=== PATIENT | male | born 1930 | race Caucasian/White ===

== ENCOUNTER 2016-10-10 09:56 | Inpatient (IN) | payer MEDICARE ==
[~2016-10-10] VITALS: Ht 180.3 cm; Wt 111.7 kg
[2016-10-10] VITALS (7 sets, daily range): BP systolic 95–130; BP diastolic 52–71; Ht 180.3 cm; Wt 111.7 kg
[~2016-10-10 09:56] MED LIST: ASPIRIN325 MG PO; AUGMENTIN 500-11 TA1 PO; BACTRIM 400-801 TAB PO; BENZONATATE200 MG PO; DEPAKOTE ER500 MG PO; FANAPT8 MG PO; IPRAT-ALBUT 0.5-3 ML INH; K-TAB10 MEQ PO; LASIX20 MG PO; LEVAQUIN500 MG PO; MOBIC7.5 MG PO; MUCINEX DM ER1 EAC1 PO; NEURONTIN 300300 MG; NEURONTIN 300300 MG PO; NEURONTIN600 MG PO; PROZAC20 MG PO; PULMICORT0.5 MG/21 UPD; SINGULAIR10 MG PO; SYNTHROID50 MCG PO; VITAMIN D31000 UNI2 PO; ZOCOR20 MG PO
[2016-10-10 11:11] LABS: BASOPHILS 0.3 % (0.0-2.0); EOSINOPHILS 4.3 % (0-7); HEMATOCRIT 35.4 % (42.0-54.0); HEMOGLOBIN 11.6 g/dL (13.5-17.5); IMMATURE GRANULOCYTES 0.3 % (0-5); LYMPHOCYTES 28.9 % (15-50); MCHC 32.8 g/dL (31.0-37.0); MCV 97.8 fL (80.0-100.0); MEAN PLATELET VOLUME 9.8 fL (7.4-10.4); MONOCYTES 13.5 % (2-11); NEUTROPHILS 52.7 % (40-80); RBC 3.62 10x6/uL (4.20-6.10); RDW 13.3 % (11.5-14.5); WBC 7.5 10x3/uL (4.8-10.8)
[2016-10-10 11:26] LABS: ALBUMIN 3.1 g/dL (3.4-5.0); ALKALINE PHOSPHATASE 47 U/L (46-116); ALT (SGPT) 23 U/L (10-68); BILIRUBIN - TOTAL 0.29 mg/dL (0.2-1.3); CALC OSMOLALITY 283 mosm/kg (275-300); CALCIUM 9.6 mg/dL (8.5-10.1); CARBON DIOXIDE 32.2 mmol/L (21.0-32.0); CHLORIDE - SERUM 102 mmol/L (98-107); CREATININE - SERUM 1.4 mg/dL (0.6-1.3); PLATELET COUNT 181 10x3/uL (130-400); PROTEIN - SERUM 7.6 g/dL (6.4-8.2); SODIUM 141 mmol/L (136-145); UREA NITROGEN 25 mg/dL (7-18); eGFR NON AFRICAN AMERICAN 51 mL/min (90-120)
[2016-10-10 11:27] LABS: GLUCOSE 89 mg/dL (74-106)
[2016-10-10 11:34] LABS: PRO BNP 134 pg/mL (0-450)
[2016-10-10 11:37] LABS: PHENYTOIN (DILANTIN) < 0.5 ug/mL (10.0-20.0)
--- NOTE | 2016-10-10 14:50 | NUR ---
PATIENT RECEIVED TO FLOOR FROM ER VIA STRETCHER. AMBULATED TO BED ASSIST X2. GAIT UNSTEADY. NO SIGNS OF DISTRESS NOTED. ORIENTED TO ROOM. BED IN LOW POSITION. CALL LIGHT IN REACH. DAUGHTER AT BEDSIDE.
[2016-10-10] MEDS ORDERED: FUROSEMIDE20 MG PO (14:52)
[2016-10-10] MEDS ORDERED: VITAMIN D31000 UNIT PO (14:54)
[2016-10-10] MEDS ORDERED: OS-CAL 500+D TA1 TAB PO (14:54)
[2016-10-10] MEDS ORDERED: IPRAT-ALBUT 0.5-3 ML UPD (14:55)
--- NOTE | 2016-10-10 16:00 | NUR ---
BED ALARM ON. SCDS ON BILATERALLY. USE EXPLAINED. STATES UNDERSTANDING. BED IN LOW POSITION. CALL LIGHT IN REACH.
--- NOTE | 2016-10-10 16:55 | NUR ---
RADIOISOTOPE TECHNICIAN REPORTS 75 CONTROL AFIB. REPORTED TO PHYSICIAN
[2016-10-10 17:26] LABS: CKMB 1.6 U/L (0.0-3.6); CREATINE KINASE 62 UL (21-232)
[2016-10-10 17:35] LABS: TROPONIN-I < 0.017 ng/mL (0.000-0.060)
--- NOTE | 2016-10-10 17:48 | NUR ---
IVF AND IV ABX INITIATED PER ORDER. IV TO RIGHT FOREARM PATENT. NO REDNESS OR INFLAMMATION NOTED TO SITE. WILL CONTINUE TO MONITOR.
--- NOTE | 2016-10-10 18:10 | NUR ---
ALERT IN BED WITH DAUGHTER PRESENT. NO SIGNS OF DISTRESS NOTED. SCDS ON BILATERALLY. SIDE RAILS UP X2. BED IN LOW POSITION. CALL LIGHT IN REACH.
--- NOTE | 2016-10-10 20:30 | NUR ---
ASSESSMENT COMPLETED, NO ACUTE DISTRESS NOTED, DTR AT BEDSIDE, FALL PRECAUTIONS IN PLACE, CL IN REACH, WILL MONITOR
[2016-10-10 21:42] LABS: CKMB 1.9 U/L (0.0-3.6); CREATINE KINASE 61 UL (21-232)
[2016-10-10 21:48] LABS: TROPONIN-I < 0.017 ng/mL (0.000-0.060)
--- NOTE | 2016-10-10 22:23 | NUR ---
MEDS GIVEN PER MAR, PARAM WELL, PT PULLED IV OUT, CATH INTACT, RESPIRATORY IN ROOM PERFORMING EKG, IV RESITED R WRIST WITH 20G X 1 ATTEMPT, FAMILY AT BEDSIDE, CL IN REACH
[2016-10-11] VITALS (8 sets, daily range): BP systolic 84–172; BP diastolic 45–72
[2016-10-11 05:30] LABS: BASOPHILS 0.1 % (0.0-2.0); EOSINOPHILS 4.5 % (0-7); HEMATOCRIT 32.4 % (42.0-54.0); HEMOGLOBIN 10.4 g/dL (13.5-17.5); IMMATURE GRANULOCYTES 0.3 % (0-5); LYMPHOCYTES 42.1 % (15-50); MCH 31.9 pg (26.0-34.0); MCHC 32.1 g/dL (31.0-37.0); MCV 99.4 fL (80.0-100.0); MEAN PLATELET VOLUME 9.7 fL (7.4-10.4); MONOCYTES 12.9 % (2-11); NEUTROPHILS 40.1 % (40-80); PLATELET COUNT 185 10x3/uL (130-400); RBC 3.26 10x6/uL (4.20-6.10); RDW 13.5 % (11.5-14.5); WBC 7.7 10x3/uL (4.8-10.8)
[2016-10-11 06:08] LABS: ALBUMIN 2.6 g/dL (3.4-5.0); ALKALINE PHOSPHATASE 49 U/L (46-116); ALT (SGPT) 22 U/L (10-68); CALC OSMOLALITY 286 mosm/kg (275-300); CALCIUM 8.2 mg/dL (8.5-10.1); CARBON DIOXIDE 31.2 mmol/L (21.0-32.0); CHLORIDE - SERUM 106 mmol/L (98-107); CHOL - HDL RATIO 3.9 ratio (2.3-4.9); CHOLESTEROL, TOTAL 177 mg/dL (0-200); CKMB 1.8 U/L (0.0-3.6); CREATINE KINASE 45 UL (21-232); CREATININE - SERUM 1.2 mg/dL (0.6-1.3); GLUCOSE 95 mg/dL (74-106); HDL CHOLESTEROL 45 mg/dL (32-96); LDL CHOLESTEROL 115 mg/dL (0-100); LDL-HDL RATIO 2.6 ratio (1.5-3.5); POTASSIUM - SERUM 3.8 mmol/L (3.5-5.1); PROTEIN - SERUM 6.8 g/dL (6.4-8.2); SODIUM 143 mmol/L (136-145); THYROID STIMULATING HORMONE 2.83 uIU/mL (0.36-3.74); TRIGLYCERIDE 85 mg/dL (30-200); TROPONIN-I < 0.017 ng/mL (0.000-0.060); UREA NITROGEN 19 mg/dL (7-18); eGFR NON AFRICAN AMERICAN 61 mL/min (90-120)
--- NOTE | 2016-10-11 07:55 | NUR ---
DAILY WEIGHT OBTAINED AT THIS TIME. ALERT AND ORIENTED. DAUGHTER AT BEDSIDE. ASSESSMENT PERFORMED PER FLOWSHEET. CARROLL MAT ALARM IN USE FOR FALL PRECAUTIONS. SCD'S REMOVED AND SKIN ASSESSMENT PERFORMED. SKIN TO BLE WNL. OXYGEN ON 2L VIA NC WITH RESPIRATIONS EVEN AND NON LABORED. PT AMBULATES WITH ASSIST AND SELF POSTITIONS IN BED WITH COMFORT. CALL LIGHT IN REACH. SRX2 WITH BED IN LOWEST POSITION AND WHEELS LOCKED. WILL CONTINUE WITH PLAN OF CARE.
--- NOTE | 2016-10-11 09:16 | NUR ---
Patient Name: JOSUE GUZMAN Admission Status: ER Accout number: [id number] Admission Date: 10-10-2016 : 1932 Admission Diagnosis: Attending: JAZMYN Current LOS: 1 Anticipated DC Date: 10-15-2016 Planned Disposition: Home with Home Health Primary Insurance: MEDICARE A & B Discharge Planning Comments: CM MET WITH PATIENT AND DAUGHTER REGARDING D/C NEEDS AND PLANS. PATIENT STATED HE HAS 10 STEPS W/RAILS TO ENTER HIS HOME AND NO STAIRS INSIDE. PATIENT LIVES ALONE BUT FAMILY IS THERE DAILY. PATIENT STATED HE IS INDEPENDENT OF HIS CARE AND HAS A WALKER, CANE, SHOWER CHAIR, HOSPITAL BED, OXYGEN 2L 24/7, PORTABLE O2, AND NEBULIZER AT HOME. PATIENTS DAUGHTER (ANDRES) HELPS WITH HIS MEDICATION MANAGEMENT. PATIENTS PCP IS DR. PONCE IN [facility] AND USES [facility]. PATIENTS DAUGHTER SIGNED THE [facility] FORM FOR [facility] IN [place] AT DISCHARGE. CM WILL CONTINUE TO FOLLOW PATIENT WITH D/C NEEDS AND PLANS. PCP DR. PONCE ([facility]) [facility] [phone] ANDRES MCKEON (DAUGHTER) [phone] [facility] ([place]) [phone] Loaf Counter: Astrid Mota Is the patient Alert and Oriented? Yes 0 * How many steps to enter\exit or inside your home? 10 /RAILS 0 * PCP DR. PONCE IN [place] 0 * Pharmacy [facility] 0 * Preadmission Environment Home with Family 0 * ADLs Independent 0 * Equipment [facility] Bed Nebulizer Oxygen Shower Chair Walker 0 * Other Equipment PORTABLE O2 SUPPLIED BY HEALTH[facility] 0 * List name and contact numbers for known caregivers / representatives who currently or will assist patient after discharge: ANDRES MCKEON (DAUGHTER) [phone] 0 * Community resources currently utilized None 0 * Additional services required to return to the preadmission environment? Yes 0 * Can the patient safely return to the preadmission environment? Yes 0 * Has this patient been hospitalized within the prior 30 days at any hospital? No 0 Grand Total: 0
--- NOTE | 2016-10-11 09:45 | NUR ---
SITTING AT SIDE OF BED AT THIS TIME. DAUGHTER AT BEDSIDE. MEDICATIONS TAKEN WITHOUT DIFFICULTY. PT MADE NPO FOR CTA. DENIES PAIN. CALL LIGHT IN REACH. CARROLL MAT ALARM ON AND IN USE. WILL CONTINUE WITH PLAN OF CARE.
--- NOTE | 2016-10-11 11:00 | NUR ---
PT NPO FOR CTA OF THE CAROTIDS PER IMAGING DEPARTMENT. DAUGHTER REMAINS AT BEDSIDE. NO FURTHER NEEDS ASSESSED. WILL CONTINUE WITH PLAN OF CARE.
--- NOTE | 2016-10-11 12:47 | NUR ---
MEDICATION ADMINISTERED WITH SMALL SIP OF WATER ORDERED. REMAINS NPO OTHERWISE. DAUGHTER REMAINS AT BEDSIDE. WILL CONTINUE WITH PLAN OF CARE.
--- NOTE | 2016-10-11 13:58 | NUR ---
BEING TAKEN FOR CT SCAN AT THIS TIME. WILL MONITOR PT WHEN HE RETURNS TO HIS ROOM.
--- NOTE | 2016-10-11 15:15 | NUR ---
IV SALINE LOCKED AND WRAPPED FOR PROTECTION SO THAT DAUGHTER MAY HELP PATIENT WITH A SHOWER. LINENS CHANGED.
--- NOTE | 2016-10-11 19:00 | NUR ---
PATIENT SUPINE IN BED WATCHING TV. HOB 20 DEGREES. AAOX4. RR EVEN AND UNLABORED. O2 @ 2L VIA NC. 0 S/S OF DISTRESS. DENIES PAIN AT THIS TIME. IV TO RIGHT WRIST PATENT WITH NO REDNESS OR SWELLING. SCD'S ON. TELEMETRY ON. CARROLL MAT ON. DAUGHTER AT BEDSIDE. SRX2. BED LOW. CALL LIGHT WITHIN REACH.
[2016-10-12] VITALS: BP 110/51; BP 123/71; BP 130/76
[2016-10-12 04:00] VITALS: BP 111/52; BP 114/69; BP 138/66
[2016-10-12 05:13] LABS: BASOPHILS 0 % (0.0-2.0); EOSINOPHILS 0.1 % (0-7); HEMATOCRIT 33.5 % (42.0-54.0); IMMATURE GRANULOCYTES 0.6 % (0-5); LYMPHOCYTES 21.3 % (15-50); MCH 32.2 pg (26.0-34.0); MCHC 32.8 g/dL (31.0-37.0); MEAN PLATELET VOLUME 9.8 fL (7.4-10.4); MONOCYTES 1.9 % (2-11); NEUTROPHILS 76.1 % (40-80); PLATELET COUNT 192 10x3/uL (130-400); RBC 3.42 10x6/uL (4.20-6.10); RDW 13.2 % (11.5-14.5)
[2016-10-12 05:34] LABS: ALBUMIN 2.7 g/dL (3.4-5.0); ANION GAP 11.1 mmol/L (8-16); BILIRUBIN - TOTAL 0.19 mg/dL (0.2-1.3); CARBON DIOXIDE 28.2 mmol/L (21.0-32.0); CREATININE - SERUM 1.1 mg/dL (0.6-1.3); POTASSIUM - SERUM 4.3 mmol/L (3.5-5.1); PROTEIN - SERUM 7.1 g/dL (6.4-8.2)
--- NOTE | 2016-10-12 07:40 | NUR ---
LYING SUPINE WITH HOB AT 20 DEGREES. AWAKE AND ALERT. RESPIRATIONS EVEN AND NON LABORED. OXYGEN ON 2L VIA NC. ASSESSMENT PERFORMED PER FLOWSHEET. PT DENIES PAIN. SCD'S ON AND IN WORKING ORDER. CARROLL MAT ALARM IN USE FOR FALL PRECAUTIONS. BED IN LOWEST POSITION WITH SRX2 AND WHEELS LOCKED. CALL LIGHT IN REACH, PT DENIES NEEDS AT THIS TIME. WILL CONTINUE WITH PLAN OF CARE, DOOR REMAINS OPEN.
[2016-10-12 08:00] VITALS: BP 103/52; BP 130/71
[2016-10-12 08:03] VITALS: BP 123/62
[2016-10-12 11:00] VITALS: BP 140/65; BP 144/69
[2016-10-12] MEDS ORDERED: ZPAK PO (11:06)
[2016-10-12] MEDS ORDERED: TESSALON PERLE100 MG PO (11:06)
[2016-10-12] MEDS ORDERED: BETAPACE 80 MG80 MG PO (11:06)
[2016-10-12] MEDS ORDERED: MUCINEX DM ER1 EAC1 PO (11:06)
[2016-10-12] MEDS ORDERED: PREDNISONE10 MG PO (11:07)
[2016-10-12] MEDS ORDERED: OMNICEF300 MG PO (11:08)
[2016-10-12 11:11] VITALS: BP 131/67
--- NOTE | 2016-10-12 12:23 | NUR ---
CM REASSESSMENT NOTE: PATIENT IS DISCHARGING HOME TODAY WITH [facility] OUT OF [facility] FORM WAS SIGNED. PATIENTS DAUGHTER (JOSIE) IS DRIVING HIM HOME. PATIENT REFUSED IP REHAB-FAMILY AWARE.
--- NOTE | 2016-10-12 12:30 | NUR ---
CM REASSESSMENT NOTE: PATIENT IS DISCHARGING HOME TODAY WITH [facility] OUT OF [facility] FORM WAS SIGNED. PATIENTS DAUGHTER (JOSIE) IS DRIVING HIM HOME. PATIENT REFUSED IP REHAB-FAMILY AWARE.
--- NOTE | 2016-10-12 12:40 | CN ---
PATIENT NAME:JOSUE SWEENEY MEDICAL RECORD: [id number] : 32 LOCATION:[facility] [address] ADMIT DATE: 10/10/16 ACCOUNT: [id number] CONSULTING PHYSICIAN: LUDMILA CHEEK MD REFERRING PHYSICIAN: AMINA DIXON MD DATE OF CONSULTATION: 10/11/2016 CONSULT REQUESTING PHYSICIAN: Amina Dixon MD. REASON FOR CONSULTATION: Pneumonia, frequent falls. HISTORY OF PRESENT ILLNESS: Mr. Sweeney is an 86-year-old gentleman, very well known to me. The patient has a history of pulmonary fibrosis and COPD and chronic hypoxic respiratory failure. This fibrosis is stable. According to the patient's daughter, he has a fall a few days ago, but then he has 2 falls in row. According to the patient, he has a brief loss of consciousness, but do not remember the event. At one time, he fell down and hit his head on something. He denies any fever and chill. There are no night sweats. There is no significant sputum production. There was no recent upper respiratory tract infection. REVIEW OF SYSTEMS: Mainly in the history of present illness. PAST MEDICAL HISTORY: 1. COPD, home oxygen dependent. 2. Congestive heart failure. 3. Coronary artery disease. 4. Chronic hypoxic respiratory failure. 5. Chronic kidney disease. 6. Manic depressive disorder. PAST SURGICAL HISTORY: He had an ear surgery. ALLERGIES: ALLERGIC TO BEE VENOM. PRESENT MEDICATIONS: On PlaceVine, is reviewed. PERSONAL AND SOCIAL HISTORY: The patient lives alone. He is an ex-smoker. He is a nondrinker. FAMILY HISTORY: Noncontributory. PHYSICAL EXAMINATION: GENERAL: Now, the patient is lying comfortably in bed. He is not in acute distress. VITAL SIGNS: The blood pressure is 196 to 119/59, pulse is 71, respirations 20, temperature is 98.8, SpO2 is 96% on 2 liter nasal cannula. HEENT: Conjunctivae pink, sclerae nonicteric. NECK: Supple, no JVD. CHEST: The chest excursion is minimal on both sides, bilateral crackles. No wheezing. HEART: Rhythm regular, normal sound, no murmur. ABDOMEN: Soft. Bowel sounds present. No hepatosplenomegaly. RECTAL: Deferred. EXTREMITIES: No cyanosis. No clubbing. There is 1+ pedal edema. CONSULT REPORT [id number] JOSUE SWEENEY SKIN: Warm, normal turgor. CENTRAL NERVOUS SYSTEM: The patient is awake and alert. There is no obvious cranial nerve abnormality. The gait was not tested. IMAGING: Chest radiograph, there are increased interstitial markings. There is infiltrate in the left lower lobe on today's chest x-ray that has been improved. CT scan of the head did not show any acute ischemic process. OTHER LABORATORY DATA: CBC: WBC is 7.7, hemoglobin 11.6, hematocrit 35.4, the platelet count is 181. Chemistry: Sodium 143, potassium 3.8, BUN is 19, creatinine 1.2. IMPRESSION: 1. Ptyzu-jo-cfcfiwm hypoxic respiratory failure. 2. Pneumonia, left lower lobe, most likely community-acquired pneumonia, possibly aspiration at the time of syncopal episode. 3. Pulmonary fibrosis that has been stable. 4. Chronic obstructive pulmonary disease. 5. Syncope, rule out pulmonary hypertension, rule out cardiac causes, rule out neurological causes. Possible orthostatic hypotension. 6. Frequent falls. RECOMMENDATION: 1. The patient already seen by Dr. Herrmann. 2. Check the cardiac echo. We will continue Zithromax and Rocephin. Start methylprednisolone IV, Brovana and budesonide nebulizer. Continue with Singulair [address] Dixon, once again thanks for allowing me in the care of Mrs. Sweeney. TRANSINT:[id number] Voice Confirmation ID: [id number] DOCUMENT ID: [id number] LUDMILA CHEEK MD at 1240 CC: AMINA DIXON MD [id number] DICTATION DATE: 10/11/16 1309 FERMENTING CELLARS RECEIVER: 10/11/16 1453 ADM IN [facility] [address] [place] [address]
--- NOTE | 2016-10-12 14:25 | NUR ---
DISCHARGED HOME WITH DAUGHTER AT THIS TIME. IV TO RIGHT WRIST D/C WITH CATH TIP INTACT.
--- NOTE | 2016-10-26 08:46 | EC ---
PATIENT:JOSUE GUZMAN DATE OF SERVICE: 10/10/16 SEX: M MEDICAL RECORD: [id number] DATE OF : 32 LOCATION:D.[facility] AGE OF PATIENT: 86 ADMISSION DATE: 10/10/16 REFERRING PHYSICIAN: INTERPRETING PHYSICIAN: HARPREET NAGY MD ECHOCARDIOGRAM REPORT ECHO CHARGES 4 ECHO COMPLETE CLINICAL DIAGNOSIS: FALLS/PNEUMONIA HX OF CHF/DYSPNEA/TIA ECHOCARDIOGRAPHIC MEASUREMENTS (adult normal given) AC root (d.<3.7cm) 3.7 LV Septum d (<1.2 cm> 1.3 Valve Excursion 2.2 LV Septum (systole) 1.5 Left Atria (s.<4.0cm> 3.0 LVPW d(<1.2cm) 1.5 RV (d.<2.3cm) 4.7 LVPW (sytole) 1.7 LV diastole(<5.6CM) 5.2 MV E-F(>70mm/sec) LV systole 3.8 LVOT Diameter 1.9 MV exc.(>10mm) 1.3 Est.ejection fraction (50-75%) Pericardial Effusion N DOPPLER: LVIT A 67.0 E 52.0 LA RVSP 30 LVOT 104 AOP1/2T Asc. Ao 149 RVOT 90 RA PA 128 AV Gradient Peak 8.89 AV Mean 3.90 AV Area 2.3 MV Gradient Peak 2.11 MV Mean 1.01 MV Area COMMENTS: Spirits Model: Angelique ALFORD Store Clerk Cashier:Marisela Herrmann TAPE# PACS DATE OF SERVICE: 10/11/2016 Echocardiogram FINDINGS: 1. Left ventricular chamber size is within normal limits. Left ventricular systolic function is normal. Overall ejection fraction estimated at 55%. 2. Left atrium is within normal limits at 3.0 cm. Right atrium and right ventricular chamber sizes are mildly dilated. 3. Valvular structures have normal structure and motion. ECHOCARDIOGRAM REPORT [id number] JOSUE GUZMAN 4. Doppler interrogation reveals trace mitral regurgitation, trace to mild tricuspid regurgitation. No other valvular insufficiency or stenosis. Pulmonary systolic pressure is normal, estimated 30 mmHg. 5. No evidence of pericardial effusion or left ventricular thrombus. TRANSINT:[id number] Voice Confirmation ID: [id number] DOCUMENT ID: [id number] 10/15/2016 Edited to correct date of service, dmm. HARPREET NAGY MD at 0846 CC: [id number] DICTATION DATE: 10/12/16 1043 RAPID TRANSIT OPERATOR: 10/12/16 1137 DIS IN 10/12/16 [id number] [place] [address]
== END 2016-10-12 14:25 | disposition home health service (06) | DRG 189 ==
LOC: D.ER 09:56 → D.MS 13:43
PROVIDERS: Physician Assistant; ADMIT Emergency Medicine
DX: J96.21 Acute and chronic respiratory failure with hypoxia (principal); J18.9 Pneumonia, unspecified organism; J44.0 Chronic obstructive pulmonary disease with (acute) lower respiratory infection; I13.0 Hypertensive heart and chronic kidney disease with heart failure and stage 1 through stage 4 chronic kidney disease, or unspecified chronic kidney disease; N17.9 Acute kidney failure, unspecified; J84.10 Pulmonary fibrosis, unspecified; I95.1 Orthostatic hypotension; N18.3 Chronic kidney disease, stage 3 (moderate); I48.0 Paroxysmal atrial fibrillation; I50.9 Heart failure, unspecified; R29.6 Repeated falls; R53.1 Weakness; Z99.81 Dependence on supplemental oxygen; Z87.891 Personal history of nicotine dependence

== ENCOUNTER 2016-10-12 20:38 | Emergency (ER) | payer MEDICARE ==
[2016-10-10 15:03] VITALS: BMI 33.5
[~2016-10-12 20:38] MED LIST changes: +BETAPACE 80 MG80 MG PO; +FUROSEMIDE20 MG PO; +IPRAT-ALBUT 0.5-3 ML UPD; +OMNICEF300 MG PO; +OS-CAL 500+D TA1 TAB PO; +PREDNISONE10 MG PO; +TESSALON PERLE100 MG PO; +VITAMIN D31000 UNIT PO; +ZPAK PO
== END 2016-10-12 22:43 | disposition home or self-care (01) ==
LOC: D.ER 20:38
DX: S82.62XA Displaced fracture of lateral malleolus of left fibula, initial encounter for closed fracture (principal); W01.0XXA Fall on same level from slipping, tripping and stumbling without subsequent striking against object, initial encounter; Y93.89 Activity, other specified; Y92.019 Unspecified place in single-family (private) house as the place of occurrence of the external cause; F31.9 Bipolar disorder, unspecified; I50.9 Heart failure, unspecified; J44.9 Chronic obstructive pulmonary disease, unspecified; Z86.73 Personal history of transient ischemic attack (TIA), and cerebral infarction without residual deficits

== ENCOUNTER 2016-10-15 14:49 | Inpatient (IN) | payer MEDICARE ==
[~2016-10-15] VITALS: Ht 180.3 cm; Wt 112.0 kg
--- NOTE | 2016-10-15 15:00 | NUR ---
PT ARRIVED TO REHAB WITH FAMILY PT ORIENTED TO ROOM CALL LIGHT IN REACH VITALS STABLE WILL MONITER
[2016-10-15 15:39] VITALS: BP 149/85; BMI 34.5
--- NOTE | 2016-10-15 17:00 | NUR ---
PT RESTING IN BED WITH EYES OPEN CALL LIGHT IN REACH NO PROBLEMS WILL MONITER
--- NOTE | 2016-10-15 19:25 | NUR ---
PT. IN BED WITH HOB UP FOR COMFORT WITH EYES CLOSED AND RESP. EVEN. PT. AWAKENS EASILY WHEN CALLING OUT HIS NAME. PT. DENIES ANY NEEDS AT THIS TIME. ASSESSMENT COMPLETED. CALL LIGHT WITHIN REACH. PT. WEARING HIS 3D WALKING BOOT TO HIS LLE AT ALL TIME. CIRCULATION TO TOES GOOD. 02 @ 2L/MIN VIA N/C NO REPORTED PROBLEMS.
--- NOTE | 2016-10-15 21:20 | NUR ---
PT. IN BED WITH HOB UP FOR COMFORT WITH EYES CLOSED AND RESP. EVEN. CALL LIGHT WITHIN REACH.
[2016-10-15 22:47] VITALS: BP 148/83
--- NOTE | 2016-10-15 23:18 | NUR ---
PT. IN BED READING HIS DEVOTIONS/BIBLE. PT. HAS NO NEEDS AT THIS TIME. CALL LIGHT WITHIN REACH.
--- NOTE | 2016-10-16 01:02 | NUR ---
PT. IN BED WITH HOB UP FOR COMFORT WITH EYES CLOSED AND RESP EVEN. CALL LIGHT WITHIN REACH.
--- NOTE | 2016-10-16 02:45 | NUR ---
PT. UP WITH ASSISTANCE TO BR FOR BM AND TO URINATE. PT. ASSISTED BACK TO BED WITHOUT ANY PROBLEMS, POSITIONED TO COMFORT AND CALL LIGHT WITHIN REACH.
--- NOTE | 2016-10-16 02:45 | NUR ---
PT BANQUET ATTENDANT LIGHT, PT UP TO BR WITH ASSISTANCE VIA WC, PT TO COMMODED, PT VOIDED AND HAD BM BY SELF WITH NO DIFFICULTY, PT BACK TO WC, WASH CLOTH PROVIDED FOR HANDS, PT BACK TO BED, O2 PLACED BACK ON, BED IN LOW POSITION, SIDE RAILS X 2, CALL LIGHT IN REACH
--- NOTE | 2016-10-16 05:59 | NUR ---
PT KICK BOXER LIGHT, PT UP IN BR AT THIS TIME, PT OFF COMMODED TO WC, BACK TO BED, O2 PLACED BACK ON, PT PLACES GLASSES ON, HOB UP TO 45 DEGREES, PT GETTING READY TO READ HIS BIBLE, PT DENIES FURTHER NEEDS OR PAIN AT THIS TIME
[2016-10-16 06:31] LABS: BASOPHILS 0.1 % (0.0-2.0); EOSINOPHILS 0.3 % (0-7); HEMATOCRIT 34.2 % (42.0-54.0); HEMOGLOBIN 11.1 g/dL (13.5-17.5); IMMATURE GRANULOCYTES 0.8 % (0-5); MCH 31.6 pg (26.0-34.0); MCHC 32.5 g/dL (31.0-37.0); MCV 97.4 fL (80.0-100.0); MEAN PLATELET VOLUME 9.5 fL (7.4-10.4); MONOCYTES 9.3 % (2-11); NEUTROPHILS 56.5 % (40-80); PLATELET COUNT 200 10x3/uL (130-400); RBC 3.51 10x6/uL (4.20-6.10); RDW 13.6 % (11.5-14.5); WBC 9.3 10x3/uL (4.8-10.8)
[2016-10-16 06:39] LABS: ANION GAP 7.6 mmol/L (8-16); CARBON DIOXIDE 34.8 mmol/L (21.0-32.0); CREATININE - SERUM 1.1 mg/dL (0.6-1.3); POTASSIUM - SERUM 3.4 mmol/L (3.5-5.1)
--- NOTE | 2016-10-16 07:00 | NUR ---
Pt. was received in bed at the beginning of this shift. Awake and asking for assist to the bathroom. Pt. had had an incontinent episode with urine and his pajamas were saturated in urine. Pt. was helped to the bathroom and his adult brief and pants were changed out. Pt. stayed up in wheelchair and began his breakfast when it arrived. Vital signs: Temp. 97.6, pulse 73, resp. 14, b/p 101/53, 02Sat. 97%. 02 per nc going at 2L/min. Stable condition observed. Call light is in reach.
[2016-10-16 09:37] VITALS: Ht 180.3 cm; Wt 112.0 kg
--- NOTE | 2016-10-16 12:00 | NUR ---
Pt. is having an uneventful day. He is assisted to and from the bathroom with each episode. No signs of any discomfort or distress. Call light in reach. Will continue to observe.
[2016-10-16 18:21] VITALS: BP 101/53
[2016-10-16 19:05] VITALS: BP 98/61
--- NOTE | 2016-10-16 19:35 | NUR ---
PT. IN BED WITH HOB UP FOR COMFORT AND WEARING HIS 3D WALKING BOOT IN BED. PT. STATES HE WEARS IT ALL THE TIME. ASSESSMENT COMPLETED. PT. DENIES ANY NEEDS AT THIS TIME AND HIS CALL LIGHT IS WITHIN REACH.
--- NOTE | 2016-10-16 22:10 | NUR ---
FOUND PT. UP IN HIS W/C GOING TO THE BR WITHOUT ANY ASSISTANCE. INSTRUCTED PT. TO ALWAYS CALL FOR ASSISTANCE WE DON'E WANT HIM TO FALL. PT. RELATED HE HAD A BAD EXPERIENCE ON DAY SHIFT TODAY WHEN HE NEEDED TO URINATE AND NO ONE WOULD ANSWER HIS CALL LIGHT SO HE GOT UP IN HIS W/C BY HIMSELF. INSTRUCTED PT. TO CALL FOR ASSISTANCE AND WE WILL ANSWER THE CALL LIGHT. INFORMED PT. I WOULD REPORT THIS INCIDENT TO WALDO WINTERS, AWAKE OVERNIGHT COUNSELOR. PT. INSTRUCTED TO USE PULL CORD IN BATHROOM WHEN HE IS FINISHED. PT. STATED HE WOULD.
--- NOTE | 2016-10-16 23:46 | NUR ---
PT. IN BED WITH HOB UP FOR COMFORT WITH EYES CLOSED AND RESP. EVEN. O2 ON AT 2L/MIN, 3D WALKING BOOT REMAINS ON AT ALL TIMES AND CALL LIGHT IS WITHIN REACH.
--- NOTE | 2016-10-17 00:02 | NUR ---
PT. IN BED WITH HOB UP FOR COMFORT WITH EYES CLOSED AND RESP. EVEN. 3D BOOT CONTINUES TO BE ON LLE AND O2 ON AT 2L/MIN WITHOUT ANY PROBLEMS. CALL LIGHT WITHIN REACH.
--- NOTE | 2016-10-17 03:06 | NUR ---
PT. IN BED WITH HOB UP FOR COMFORT WITH EYES CLOSED AND RESP. EVEN. CALL LIGHT WITHIN REACH. 3C BOOT ON LLE AT ALL TIMES AND PT. HAS HIS O2 ON VIA N/C AT 2L/MIN.
--- NOTE | 2016-10-17 05:36 | NUR ---
PT. IN BED WATCHING TV. NO VOICED NEEDS BUT ASKED PT. IF HE NEEDED TO USE THE BATHROOM AND HE SAID YES. PT. URINATED AND HAD A B.M. ASSISTED BACK TO BED AND POSITIONED TO COMFORT. LLE WITH 3D WALKING BOOT STILL ON AND HIS O2 ON AT 2L/MIN VIA N/C WITHOUT ANY PROBLEMS. CALL LIGHT REMAINS WITHIN REACH.
[2016-10-17 08:19] VITALS: BP 100/59
--- NOTE | 2016-10-17 09:43 | NUR ---
UP IN WHEELCHAIR IN ROOM AR THIS TIME. DENIES ANY NEEDS. TRANSFERS VIA STAND BY ASSIST. INCONTINENT VOID NOTED. SOB ON EXERTION. NO ACUTE DISTRESS NOTED. WILL CONTINUE PLAN FO CARE.
--- NOTE | 2016-10-17 12:10 | NUR ---
UP IN WHEELCHAIR EATING LUNCH AT THIS TIME. DENIES ANY NEEDS. WILL CONTINUE PLAN OF CARE.
--- NOTE | 2016-10-17 14:16 | NUR ---
IN THERAPY GYM PARTICIPATING IN THERAPY AT THIS TIME. NO ACUTE DISTRESS NTOED. WILL CONTINUE PLAN FO CARE.
--- NOTE | 2016-10-17 16:38 | NUR ---
CARE TEAM MEETING: PATIENT TENATIVE DISCHARGE DATE IS 10/26/16. PATIENT WOULD LIKE TO DISCHARGE TO A SNF IN [facility] DUE TO NOT HAVING ASSISTANCE AT HOME. REFERRAL WILL BE MADE FOR POSSIBLE ADMISSION. PATIENT HAS WALKER, CANE, SHOWER CHAIR, BED O2, NEBULIZER. PCP IS DR. PONCE IN [facility]. PATIENT HAS USED [facility] IN [place]. WILL CONTINUE TO FOLLOW WITH PATIENT UNTIL DISCHARGED
--- NOTE | 2016-10-17 17:31 | NUR ---
UP IN WHEELCHAIR EATING SUPPER AT THIST JAVIER. DENIES ANY NEEDS. WILL CONTINUE PLAN FO CARE.
--- NOTE | 2016-10-17 18:50 | NUR ---
LYING IN BED RESTING AT THIS TIME. DENEIS ANY NEEDS. RESPIRATIONS AT STEADY AND UNLABORED RATE. NO ACUTE DISTRESS NOTED. WILL CONTINUE PLAN OF CARE.
--- NOTE | 2016-10-17 20:30 | NUR ---
PT TOOK HS MEDS WITHOUT DIFFICULTY. PT ASSISTED TO BR. BRIEF CHANGED. PT BACK IN BED. WCTM. BED LOW. CL IN REACH.
--- NOTE | 2016-10-17 22:45 | NUR ---
PT ASSISTED TO BR. BRIEF CHANGED. PT BACK IN BED. WCTM. BED LOW. C DOROTHY PAREDES.
--- NOTE | 2016-10-18 01:52 | NUR ---
PT ASSISTED TO BR. BRIEF CHANGED. PT BACK IN BED AND DENIES FURTHUR NEEDS. WCTM. BED LOW. CL IN [facility].
--- NOTE | 2016-10-18 03:52 | NUR ---
PT RESTING, EYES CLOSED. BED LOW. CL IN REACH.
--- NOTE | 2016-10-18 06:39 | NUR ---
PT AM MEDS TAKEN. PT ASSISTED TO BR. BRIEF CHANGED. PT BACK IN BED AND DENIES FURTHUR NEEDS. WCTM. BED LOW. CL IN [facility].
--- NOTE | 2016-10-18 07:00 | NUR ---
Pt. was received at the beginning of this shift in bed awake and oriented x 3. He requested to go to the bathroom at this time and was assisted to do so. Vital signs: Temp. 97.9, pulse 93, resp. 15, b/p 118/62, 02Sat. 98%. Pt is on 2L 02 per nc. Will continue to observe and assist with adl's prn. No voiced complaints of pain or discomfort.
[2016-10-18 08:01] VITALS: BP 118/62
--- NOTE | 2016-10-18 12:00 | NUR ---
Pt. is having an uneventful day. Stable condition observed. Pt. went to therapy this morning and participated well. Boot is on left ankle. No voiced complaints. Continuing to observe. Call light in reach.
--- NOTE | 2016-10-18 19:15 | NUR ---
PT ASSISTED TO BR. BRIEF CHANGED. PT BACK IN BED AND DENIES FURTHUR NEEDS. WCTM. BED LOW. CLIN REACH.
--- NOTE | 2016-10-18 20:35 | NUR ---
PT TOOK HS MEDS WITHOUT DIFFICULTY. PT DENIES NEEDS AT THIS TIME. BED LOW. CL INR EACH.
[2016-10-18 20:45] VITALS: BP 118/55
--- NOTE | 2016-10-18 23:46 | NUR ---
PT RESTING, EYES CLOSED. BED LOW. CLIN REACH.
--- NOTE | 2016-10-19 05:20 | NUR ---
PT ASSISTED TO BR. PT BRIEF AND PINK PAD CHANGED. PT DENIES NEEDS. AT THIS TIEM. BED LOW. CL IN REACH.
[2016-10-19 05:41] LABS: BASOPHILS 0.1 % (0.0-2.0); EOSINOPHILS 3.5 % (0-7); HEMATOCRIT 33.7 % (42.0-54.0); IMMATURE GRANULOCYTES 0.5 % (0-5); LYMPHOCYTES 22.4 % (15-50); MCH 32.1 pg (26.0-34.0); MCHC 32.6 g/dL (31.0-37.0); MCV 98.3 fL (80.0-100.0); MEAN PLATELET VOLUME 9.5 fL (7.4-10.4); MONOCYTES 10.6 % (2-11); NEUTROPHILS 62.9 % (40-80); PLATELET COUNT 215 10x3/uL (130-400); RBC 3.43 10x6/uL (4.20-6.10); RDW 13.8 % (11.5-14.5); WBC 10.2 10x3/uL (4.8-10.8)
[2016-10-19 05:56] LABS: ANION GAP 6.9 mmol/L (8-16); CALCIUM 9.2 mg/dL (8.5-10.1); CARBON DIOXIDE 35.7 mmol/L (21.0-32.0); CREATININE - SERUM 1.4 mg/dL (0.6-1.3); POTASSIUM - SERUM 3.6 mmol/L (3.5-5.1)
--- NOTE | 2016-10-19 07:40 | NUR ---
SITTING IN SIDE OF THE BED EATING BREAKFAST.
[2016-10-19 07:53] VITALS: BP 91/64
--- NOTE | 2016-10-19 10:22 | NUR ---
FAXED REFERRAL TO [facility], WITH CONFORMATION RECIEVED
--- NOTE | 2016-10-19 10:44 | RHP ---
PATIENT: JOSUE GUZMAN MEDICAL RECORD: [id number] ACCOUNT: [id number] LOCATION:[facility] Jack1111 : 32 ADMISSION DATE: 10/15/16 REHABILITATION HISTORY AND PHYSICAL EXAMINATION POST ADMISSION PHYSICIAN EXAMINATION Post-admission Physical Exam and History and Physical DATE OF ADMISSION TO THE REHAB: 10/15/2016 ADMITTING DIAGNOSIS TO THE REHAB: Kylzk-bf-nnnysvp hypoxic respiratory failure, acute left lower lobe pneumonia and new onset atrial fibrillation. HISTORY OF PRESENT ILLNESS: The patient is an 86-year-old gentleman admitted from home with ssall-ss-fkaacbg hypoxic respiratory failure and acute left lateral malleolar fracture. He was admitted to the hospital on October 10 with acute lobar pneumonia, orthostatic hypotension, syncope, recent falls, hypothyroidism, chronic oxygen dependence, anemia of chronic disease, chronic kidney disease, pulmonary fibrosis and bipolar disorder after all appropriate diagnostic tests and labs were performed during his hospital stay. The patient responded appropriately to treatment quicker than expected and was discharged home on October 12. He lives alone, is O2 dependent for COPD and after he got home, he had fallen several times. On the evening of October 12, he presented to Emergency Room. X-ray of his left ankle showed a left malleolar fracture with mild displacement and soft tissue swelling. He was placed in a walking boot, followed up on ortho on October 15, he is unable to return home safely at this time. He is in a walking boot with weightbearing restrictions on the left. He has 10 stairs to climb just to enter his home. He has always needed a durable medical equipment, but is unable to use it without assistance at this time, definitely will need inpatient care to get back to his prior level of functioning. COMORBIDITIES: Include dyspnea, syncope, orthostatic hypotension, frequent falls, chronic O2 use, TIA, chronic kidney disease, neuropathy, acute kidney insufficiency, CHF and bipolar disorder. PAST MEDICAL HISTORY: Significant for hypothyroidism, chronic O2 dependence, anemia of chronic disease, chronic kidney disease, pulmonary fibrosis and bipolar disorder. PAST SURGICAL HISTORY: Includes ear surgery. 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 CURRENT MEDICATIONS: Include potassium 10 mEq daily, Synthroid 50 mcg daily, Floranex 460 mg daily, Lasix 20 mg b.i.d., vitamin D 2000 units daily, aspirin 325 mg daily, sotalol 40 mg b.i.d., Singulair 10 mg. at bedtime, Mucinex 1 tab b.i.d., Prozac 20 mg b.i.d., Depakote b.i.d., Omnicef 300 mg b.i.d., Caltrate 500 mg b.i.d. and Tessalon Perles 100 mg t.i.d. p.r.n. cough. HABITS: No current alcohol or tobacco use. FAMILY HISTORY: Noncontributory. SOCIAL HISTORY: The patient hopes to return back home, he lives over in [place]. HISTORY AND PHYSICAL [id number] JOSUE GUZMAN REVIEW OF SYSTEMS: GENERAL: Does complain of some weakness. HEENT: Denies cold, cough, or congestion. CARDIOVASCULAR: Denies any chest pain. PHYSICAL EXAMINATION: VITAL SIGNS: Stable, afebrile. GENERAL: An elderly gentleman, who is in no acute distress, alert upon exam. HEENT: Normocephalic and atraumatic. Mucosa moist. NECK: Supple. No lymphadenopathy. LUNGS: Clear at this time, although he does have a few expiratory wheezes. CARDIOVASCULAR: Irregular rate and rhythm. ABDOMEN: Benign. EXTREMITIES: No clubbing, cyanosis, but does have a walking boot in place. NEUROLOGIC: Seems intact. LABORATORY DATA: White count is 9.3, H&H of 11 and 34 and platelet count was noted to be 200. His sodium is 141, potassium 3.4, BUN and creatinine of 21 and 1.1 and blood sugar was noted to be 107. ASSESSMENT: This is an 86-year-old gentleman admitted to the rehab with a working diagnosis of dquvw-sr-cqcwfuq hypoxic respiratory failure complicated by a new malleolar fracture requiring a walking boot. The patient has potential to make improvement. We instituted the following multidisciplinary therapies including, but not limited to, physical, occupational, respiratory, speech, nutritional services, prosthetics and orthotics. Given his complex condition and risk for more complications, rehabilitation services cannot be provided at a low level of care such as a [facility] facility. PLAN: 1. Admit to [facility] rehab for intensive inpatient therapy to include the following disciplines: A. Physical therapy to improve gait, all transfer skills and bed mobility to a modified independent level. B. Occupational therapy to improve activities of daily living to a modified independent level. C. Case management to assist with discharge planning and placement options. D. Nutrition to assist with nutritional needs. E. Rehabilitation nursing to assist in monitoring the patient's underlying medical conditions and to assist with any type of bowel or bladder management. 2. The patient's current medication and medical care will be continued. 3. The patient will be placed on standard fall precautions. 4. We will go ahead and monitor him closely with his walking boot and see how he gets around prior to going home because he will need to go some steps with this. 5. We will go ahead and discuss this patient during care team staff meeting this week. TRANSINT:[id number] Voice Confirmation ID: [id number] DOCUMENT ID: [id number] HISTORY AND PHYSICAL [id number] JOSUE GUZMAN SCOTT MD at 1044 CC: [id number] DICTATION DATE: 10/16/16821 FILM TOUCH UP INSPECTOR: 10/16/16 0945 [facility] [place] [id number] [place] [id number]
--- NOTE | 2016-10-19 11:50 | NUR ---
SITTING UP IN WHEELCHAIR EATING LUNCH. CALLIGHT IN REACH.
--- NOTE | 2016-10-19 13:30 | NUR ---
SITTING UP IN WHEELCHAIR IN THE ROOM.
--- NOTE | 2016-10-19 15:28 | NUR ---
RESTING IN BED AND SIT UP TO TAKE PILSS WITH EASE. CALLIGHT IN REACH.
--- NOTE | 2016-10-19 17:17 | NUR ---
RESTING IN BED WITH SIDERAILS UPX2.
--- NOTE | 2016-10-19 19:20 | NUR ---
SON INQUIRING AND UPSET THAT FATHER DIDN'T GET ALL OF HIS BREATHING TREATMENT, WENT IN TO ROOM, SON WAS GONE. VERIFIED THAT THE CHAMBER OF THE AIR NEBULIZER, WAS EMPTY, AIR WAS OFF, APPEARS PT DID RECEIVE HIS TREATMENT.
[2016-10-19 19:53] VITALS: BP 98/67
--- NOTE | 2016-10-20 00:25 | NUR ---
PT RESTING WITH EYES CLOSED, NO S/S OF ACUTE DISTRESS, OXYGEN PER NC.
--- NOTE | 2016-10-20 00:59 | NUR ---
PT AWAKE GETTING OUT OF BED, BED ALARM NO DETERRANT, ASSISTED TO BATHROOM. ADMINISTERED TESSALON LATE OUT IN PYXIS DURING EARLIER MED PASS, THEN PATIENT WAS ASLEEP. THUS ADMINISTERED FIRST TIME PATIENT WAS AWAKE.
--- NOTE | 2016-10-20 07:11 | NUR ---
assisted pt to bathroom, incontinent of urine, retained by brief. Pt eating ice cream,
--- NOTE | 2016-10-20 07:30 | NUR ---
RESTING QUIETLY IN BED. CALL LIGHT IN REACH
[2016-10-20 08:00] VITALS: BP 90/61
--- NOTE | 2016-10-20 10:38 | NUR ---
PATIENTS FAMILY IN ROOM. REQUESTED TO GO OVER ALL MEDICATIONS PATIENT HAS HAD AT HOME AND UPON DISCHARGE LAST SATURDAY AND MEDICATIONS THAT PATIENT IS RECIEVING NOW IN HOSPITAL. THIS NURSE WENT OVER ALL MEDICATIONS WITH PATIENTS AND DAUGHTER.
--- NOTE | 2016-10-20 17:49 | NUR ---
PATIENT INCONT OF URINE. WEARING BREIFS. FAMILY IN ROOM. PATIENT HELPED IN BATHROOM BY THIS NURSE. MOD ASST WITH CHANGING BRIEF AND SHARMILA CARE. NEEDS HELP DUE TO BOOT ON LEFT LEG
[2016-10-20 19:30] VITALS: BP 110/64
--- NOTE | 2016-10-20 19:54 | NUR ---
PT RESTING QUIETLY IN ROOM, RESPIRATIONS REGULAR AND UNLABORED, AWOKE AND THEN DOZED DURING THE PROCESS OF OBTAINING VITAL SIGNS. BED ALARM ON.
--- NOTE | 2016-10-21 00:27 | NUR ---
ASSISTED PT UP TO BATHROOM, PT NEEDS SAFETY REMINDERS TO LOCK W/C. PT INCONTINENT OF URINE IN BRIEF,
--- NOTE | 2016-10-21 07:05 | NUR ---
RESTING QUIETLY IN BED. CALL LIGHT IN REACH
[2016-10-21 08:00] VITALS: BP 101/67
--- NOTE | 2016-10-21 09:30 | NUR ---
PATIENT LYING IN BED WATCHING T.V ALERT/ORIENT X4 WITH SLOW RESPONSE. CALL LIGHT WITHIN REACH. VOICES NO NEEDS AT THIS TIME
--- NOTE | 2016-10-21 10:15 | NUR ---
PATIENT HELPED INTO BATHROOM. PATIENT ABLE TO TRANSFER FROM BED INTO WHEELCHAIR BY SELF. ABLE TO ALSO TRANSFER FROM WHEELCHAIR ONTO TOILET BY SELF. PATIENT IS NOT ABLE TO PULL UP OR DOWN BRIEFS DUE TO BOOT ON LEFT LEG.
--- NOTE | 2016-10-21 13:17 | NUR ---
PATIENT IN ROOM RESTING. RESPITORY THERAPIST IN ROOM GIVING BREATHING TX.
--- NOTE | 2016-10-21 13:26 | NUR ---
PATIENT SHAVED BY THIS NURSE. HELPED WITH SHOWER. MODERATE ASST WITH SHOWER. LINENS ON BED CHANGED
--- NOTE | 2016-10-21 18:41 | NUR ---
PATIENT HELPED BACK TO BED AFTER SUPPER. PATIENT WEARS BOOT AT ALL TIMES, EVEN IN BED.
[2016-10-21 19:53] VITALS: BP 97/56
--- NOTE | 2016-10-21 20:00 | NUR ---
PT TOOK HS MEDS WITHOUT DIFFICULTY. ASSSISTED PT TO BR. PT BACK IN BED AND DENIES FURTHUR NEEDS. WCTM. BED LOW. CL IN REACH.
--- NOTE | 2016-10-21 22:15 | NUR ---
PT RESTING, EYES CLOSED. BED LOW. CL IN REACH. WCTM.
--- NOTE | 2016-10-21 23:59 | NUR ---
ASSISTED PT TO BR. PT BACK IN BED AND SKYE FURTHUR NEEDS. WCTM. BED LOW. CL IN REACH.
--- NOTE | 2016-10-22 02:10 | NUR ---
ASSISTED PT TO BR. PT BACK IN BED RESTING, DENIES NEEDS. WCTM. BED LOW. CL IN [facility].
--- NOTE | 2016-10-22 04:30 | NUR ---
PT RESTING, EYES CLOSED. BED LOW. CL IN REACH.
[2016-10-22 05:57] LABS: BASOPHILS 0.2 % (0.0-2.0); EOSINOPHILS 4.9 % (0-7); HEMATOCRIT 34.8 % (42.0-54.0); IMMATURE GRANULOCYTES 0.2 % (0-5); LYMPHOCYTES 29.9 % (15-50); MCH 31.3 pg (26.0-34.0); MCHC 31.6 g/dL (31.0-37.0); MCV 99.1 fL (80.0-100.0); MEAN PLATELET VOLUME 9.8 fL (7.4-10.4); MONOCYTES 10.8 % (2-11); PLATELET COUNT 218 10x3/uL (130-400); RBC 3.51 10x6/uL (4.20-6.10); RDW 13.6 % (11.5-14.5); WBC 9.4 10x3/uL (4.8-10.8)
[2016-10-22 06:28] LABS: ANION GAP 8.8 mmol/L (8-16); CALCIUM 9.3 mg/dL (8.5-10.1); CREATININE - SERUM 1.4 mg/dL (0.6-1.3); POTASSIUM - SERUM 3.8 mmol/L (3.5-5.1)
[2016-10-22 08:00] VITALS: BP 112/66
--- NOTE | 2016-10-22 08:15 | NUR ---
DR. Leland MEEK INTO SEE PATIENT. NEW ORDERS RECEIVED
--- NOTE | 2016-10-22 09:25 | NUR ---
RESTING QUIETLY IN BED
--- NOTE | 2016-10-22 09:40 | NUR ---
PATIENT HAS BEEN ACCEPTED TO [facility] AND WILL DISCHARGE THERE 10/23/16 AT 9:30 VIA FAC[facility]TY VAN . FAMILY NOTIFIED
--- NOTE | 2016-10-22 10:23 | NUR ---
PATIENT DISCHARGING TO [facility] ON 10/23/16. NO DME OR HOME HEALTH NEEDED AT THIS TIME. APPOINTMENT WITH PATIENT PCP WILL BE MADE AT TIME OF DISCHARGE FROM FACILITY. DR. HOPE/CASSIE SPANGLER 10/30/16 @ 9:20. PATIENT CHOICE FOR SNF AND [facility] EXPLAINED , SIGNED AND FILED IN CHART. PATIENT EDUCATED ON DEEP BREATHING EXERCISE . WILL CONTINUE TO FOLLOW WITH PATIENT UNTIL DISCHARGED
--- NOTE | 2016-10-22 10:23 | NUR ---
PATIENT SITTING UP IN WHEELCHAIR IN ROOM. USING CALL LIGHT FOR NEEDS. HELPED INTO BATHROOM. ABLE TO TRANSFER FROM WHEELCHAIR TO TOILET BY SELF. INCONT OF URINE. UNABLE TO PULL DOWN AND REMOVE WET BRIEFS. UNABLE TO PUT ON NEW BRIEF.
[2016-10-22] MEDS ORDERED: MOBIC7.5 MG PO (16:21)
--- NOTE | 2016-10-22 17:38 | NUR ---
PATIENT SITTING UP IN BED TO EAT SUPPER. DISCHARGE PAPERWORK GONE OVER WITH PATIENT. PATIENT SIGNED.
[2016-10-22 19:54] VITALS: BP 115/50
--- NOTE | 2016-10-22 20:45 | NUR ---
PT HS MEDS GIVEN. PT DENIES FURTHUR NEEDS AT THIS TIME. BED LOW. CLIN [facility].
--- NOTE | 2016-10-22 22:35 | NUR ---
PT ASSISTED TO BR. PT BACK IN BED RESTING AND DENIES FURTHUR NEEDS. WCTM. BED LOW. CLIN [facility].
--- NOTE | 2016-10-23 01:55 | NUR ---
PT RESTING, EYES CLOSED. BED LOW. CL IN REACH. WCTM.
--- NOTE | 2016-10-23 05:42 | NUR ---
PT TOOK AM MEDS WITHOUT DIFFICULTY. PT ASSISTED TO BR. BRIEF CHANGED. PT BACK IN BED AND SKYE CARI NEEDS. BED LOW. CL IN [facility].
--- NOTE | 2016-10-23 08:00 | NUR ---
SHIFT ASSMT COMPLETED.
[2016-10-23 08:03] VITALS: BP 96/54
--- NOTE | 2016-10-23 10:12 | NUR ---
DINAH REFAXED DUE TO PATIENT BEING BI-POLAR, WAITING ON ACCEPTANCE
--- NOTE | 2016-10-23 12:00 | NUR ---
EATING LUNCH.CL IN REACH.
--- NOTE | 2016-10-23 12:55 | NUR ---
Nutrition Follow Up: Chart reviewed. Pt is eating 69% meal avg on a Regular diet. +BM. Meds and labs noted. Pt continues at low nutritional risk. RD following.
--- NOTE | 2016-10-23 15:08 | NUR ---
DINAH APPROVED , VERONICA AT [facility] HAS BEEN NOTIFIED AND COPY FAXED TO FACILITY, COPY IN PATIENT CHART. PATIENT WILL DISCHRGE ON 10/24/16 @ 10:00 AM VIA FACILITY VAN
--- NOTE | 2016-10-23 16:00 | NUR ---
RESTING QUIETLY.CL IN REACH.
[2016-10-23 19:45] VITALS: BP 72/45
--- NOTE | 2016-10-23 20:00 | NUR ---
PT RESTING WITH EYES CLOSED, NO S/S OF ACUTE DISTRESS. RESPIRATIONS REGULAR AND UNLABORED.
--- NOTE | 2016-10-24 02:11 | NUR ---
PT RESTING QUIETLY, NO S/S OF ACUTE DISTRESS. HOB SLIGHTLY ELEVATED, OXYGEN ON AT 3 L/NC.
[2016-10-24 06:50] LABS: BASOPHILS 0.1 % (0.0-2.0); HEMATOCRIT 32.6 % (42.0-54.0); HEMOGLOBIN 10.5 g/dL (13.5-17.5); IMMATURE GRANULOCYTES 0.4 % (0-5); MCH 31.6 pg (26.0-34.0); MCHC 32.2 g/dL (31.0-37.0); MCV 98.2 fL (80.0-100.0); MEAN PLATELET VOLUME 9.7 fL (7.4-10.4); MONOCYTES 12.2 % (2-11); NEUTROPHILS 51.3 % (40-80); PLATELET COUNT 210 10x3/uL (130-400); RBC 3.32 10x6/uL (4.20-6.10); RDW 13.5 % (11.5-14.5); WBC 7.9 10x3/uL (4.8-10.8)
[2016-10-24 07:05] LABS: ANION GAP 7.6 mmol/L (8-16); CALCIUM 8.7 mg/dL (8.5-10.1); CARBON DIOXIDE 34.1 mmol/L (21.0-32.0); CREATININE - SERUM 1.3 mg/dL (0.6-1.3); POTASSIUM - SERUM 3.7 mmol/L (3.5-5.1)
[2016-10-24 08:41] VITALS: BP 128/70
--- NOTE | 2016-10-24 10:53 | NUR ---
Pt was received in bed at the beginning of this shift. Stable condition observed. Vital signs wnl. No complaints of any pain or discomfort. Will continue to monitor him.
--- NOTE | 2016-10-24 11:01 | NUR ---
Pt. was discharged out of Rehab. Unit in route to [facility] via their van. All of his personal belongings and discharge paperwork was sent with him and the local company truck driver. Pt. was stable upon leaving the hospital.
== END 2016-10-24 11:04 | DRG 189 ==
LOC: D.REHAB 14:49
PROVIDERS: ADMIT Emergency Medicine
DX: J96.21 Acute and chronic respiratory failure with hypoxia (principal); J18.9 Pneumonia, unspecified organism; I13.0 Hypertensive heart and chronic kidney disease with heart failure and stage 1 through stage 4 chronic kidney disease, or unspecified chronic kidney disease; I48.91 Unspecified atrial fibrillation; I95.1 Orthostatic hypotension; Z91.81 History of falling; Z99.81 Dependence on supplemental oxygen; G62.9 Polyneuropathy, unspecified; F31.9 Bipolar disorder, unspecified; D63.1 Anemia in chronic kidney disease; J84.10 Pulmonary fibrosis, unspecified; N18.9 Chronic kidney disease, unspecified; I50.9 Heart failure, unspecified

== ENCOUNTER 2016-11-08 10:22 | Inpatient (IN) | payer MEDICARE ==
[~2016-11-08] VITALS: Ht 180.3 cm; Wt 84.5 kg
[2016-11-08 11:20] LABS: APPEARANCE CLEAR (CLEAR); BILIRUBIN NEGATIVE (NEGATIVE); COLOR YELLOW (YELLOW); GLUCOSE NEGATIVE (NEGATIVE); KETONE NEGATIVE (NEGATIVE); LEUKOCYTE ESTERASE NEGATIVE (NEGATIVE); NITRITE NEGATIVE (NEGATIVE); PH 6.5 (5.0-6.0); PROTEIN NEGATIVE (NEGATIVE); SPECIFIC GRAVITY 1.015 (1.005-1.020); UROBILINOGEN NORMAL (NORMAL)
[2016-11-08 11:29] LABS: BASOPHILS 0.1 % (0.0-2.0); EOSINOPHILS 0.7 % (0-7); HEMATOCRIT 29.2 % (42.0-54.0); HEMOGLOBIN 9.3 g/dL (13.5-17.5); IMMATURE GRANULOCYTES 0.8 % (0-5); MCH 31.6 pg (26.0-34.0); MCHC 31.8 g/dL (31.0-37.0); MCV 99.3 fL (80.0-100.0); NEUTROPHILS 64.4 % (40-80); PLATELET COUNT 241 10x3/uL (130-400); RBC 2.94 10x6/uL (4.20-6.10); RDW 13.8 % (11.5-14.5); WBC 7.4 10x3/uL (4.8-10.8)
[2016-11-08 11:34] LABS: UDS - AMPHET NEGATIVE QUAL (NEGATIVE); UDS - BARB NEGATIVE QUAL (NEGATIVE); UDS - BENZO NEGATIVE QUAL (NEGATIVE); UDS - COCAINE NEGATIVE QUAL (NEGATIVE); UDS - METH NEGATIVE QUAL (NEGATIVE); UDS - OPIATE NEGATIVE QUAL (NEGATIVE); UDS - PCP NEGATIVE QUAL (NEGATIVE); UDS - THC NEGATIVE QUAL (NEGATIVE)
[2016-11-08 11:40] LABS: INR 1.15 (0.85-1.17); PROTIME 14.6 SECONDS (11.6-15.0)
[2016-11-08 11:54] LABS: ALBUMIN 2.4 g/dL (3.4-5.0); ALCOHOL - BLOOD (MEDICAL) < 3.0 mg/dL (0.0-10.0); ALKALINE PHOSPHATASE 46 U/L (46-116); ALT (SGPT) 13 U/L (10-68); BILIRUBIN - TOTAL 0.26 mg/dL (0.2-1.3); CALC OSMOLALITY 282 mosm/kg (275-300); CALCIUM 8.7 mg/dL (8.5-10.1); CARBON DIOXIDE 36.7 mmol/L (21.0-32.0); CHLORIDE - SERUM 101 mmol/L (98-107); CREATINE KINASE 26 UL (21-232); CREATININE - SERUM 1.5 mg/dL (0.6-1.3); GLUCOSE 126 mg/dL (74-106); MAGNESIUM - SERUM 2.1 mg/dL (1.8-2.4); PRO BNP 1747 pg/mL (0-450); PROTEIN - SERUM 6.9 g/dL (6.4-8.2); SODIUM 139 mmol/L (136-145); TROPONIN-I < 0.017 ng/mL (0.000-0.060); UREA NITROGEN 21 mg/dL (7-18); eGFR NON AFRICAN AMERICAN 47 mL/min (90-120)
--- NOTE | 2016-11-08 14:44 | NUR ---
REPORT RECIVED FROM ER PT TO BE TRANSFERED TO FLOOR BY WHEELCHAIR PER REPORT NO DISTRESS OBSERVED WILL ASSESS PT WHEN PT ARRIVES
[2016-11-08 15:26] VITALS: BP 99/51; BMI 25.8
[2016-11-08 15:27] VITALS: BP 99/51
[2016-11-08 20:00] VITALS: BP 103/56
--- NOTE | 2016-11-08 20:27 | NUR ---
DR. REILLY PAGED FOR CONTINUATION OF HOME MEDS. AWAITING CALL BACK.
[2016-11-09] VITALS: BP 108/64
--- NOTE | 2016-11-09 02:28 | NUR ---
RECIEVED REPOT AND PATIENT AT SHIFT CHANGE, ALERT AND ORIENTED X 4, ASSESSMENT DONE SEE FLOWSHEET. CALL LIGHT AND HYDRATION IN REACH, SIDERAILS UP X 2, BED LOCKED, AND IN LOWEST POSITION, WILL CONTINUE TO MONITOR,
[2016-11-09 04:00] VITALS: BP 125/64
[2016-11-09 04:48] LABS: BASOPHILS 0.1 % (0.0-2.0); EOSINOPHILS 0 % (0-7); HEMOGLOBIN 9.7 g/dL (13.5-17.5); IMMATURE GRANULOCYTES 0.4 % (0-5); LYMPHOCYTES 15.8 % (15-50); MCH 31.6 pg (26.0-34.0); MCHC 32.3 g/dL (31.0-37.0); MCV 97.7 fL (80.0-100.0); MEAN PLATELET VOLUME 8.8 fL (7.4-10.4); MONOCYTES 4.2 % (2-11); NEUTROPHILS 79.5 % (40-80); PLATELET COUNT 218 10x3/uL (130-400); RBC 3.07 10x6/uL (4.20-6.10); RDW 13.3 % (11.5-14.5); WBC 7.4 10x3/uL (4.8-10.8)
[2016-11-09 05:01] LABS: ANION GAP 8.2 mmol/L (8-16); CALCIUM 8.4 mg/dL (8.5-10.1); CARBON DIOXIDE 32.1 mmol/L (21.0-32.0); CREATININE - SERUM 1.3 mg/dL (0.6-1.3); POTASSIUM - SERUM 4.3 mmol/L (3.5-5.1)
[2016-11-09 09:09] VITALS: BP 116/64
[2016-11-09 10:53] VITALS: Ht 180.3 cm; Wt 84.5 kg
--- NOTE | 2016-11-09 11:38 | NUR ---
ASSISTED PT TO BATHROOM WITH USE OF WALKER BOOT TO RIGHT LOWER LEG AND GAIT IS UNSTABLE STAND BY ASSIST WITH USE OF WALKER NEEDED. PT ASSISTED TO BEDSIDE CHAIR WITH ASSISTANCE FROM PHYSICAL THERAPY RESPERATIONS EVEN AND UNLBOARED ON 3LNC PT ANSWER QUESTIONS APPROPREATLY AND DECREASE IN EDEMA TO LOWER EXTREMITIES +2 AT THIS TIME WILL MONITOR
[2016-11-09 12:38] VITALS: BP 96/53
--- NOTE | 2016-11-09 13:01 | NUR ---
PT SITTING UP IN CHAIR AT BEDSIDE NO DISTRESS OBSERVED CALL LIGHT IN REACH SRX2 BED LOW AND LOCKED RESPERATIONS EVEN AND UNLABORED DAUGHTER IN ROOM AT BEDSIDE WILL MONITOR
--- NOTE | 2016-11-09 15:14 | NUR ---
Patient Name: JOSUE GUZMAN Admission Status: ER Accout number: [id number] Admission Date: 11-08-2016 : 1930 Admission Diagnosis:SHORTNESS OF BREATH Attending: BRADFORD Current LOS: 1 Anticipated DC Date: Planned Disposition: [facility] Facility Primary Insurance: MEDICARE A & B PLANNED EXTERNAL PROVIDER: [facility], MEDICARE REHAB BED Discharge Planning Comments: * Is the patient Alert and Oriented? Yes 0 * How many steps to enter\exit or inside your home? NONE 0 * PCP DR. CRISOSTOMO 0 * Pharmacy [facility] 0 * Preadmission Environment [facility] 0 * Facility Name [facility] 0 * ADLs Partial Dependent 0 * Partial ADLs (Assistance needed) Bathing Medication Management 0 * Equipment Other 0 * Other Equipment ALL MEDICAL EQUIPMENT PROVIDED BY [facility] 0 * List name and contact numbers for known caregivers / representatives who currently or will assist patient after discharge: MERCEDES WIN, DTR, 0 * Community resources currently utilized None 0 * Please name any agencies selected above. NONE 0 * Additional services required to return to the preadmission environment? No 0 * Can the patient safely return to the preadmission environment? Yes 0 * Has this patient been hospitalized within the prior 30 days at any hospital? Yes 0 CM MET WITH PT AND DAUGHTER IN ROOM TO ASSESS DISCHARGE NEEDS AND DISCUSS DISCHARGE PLANNING. PT HAS BEEN IN REHAB AT [facility] AND WILL RETURN THERE AT DISCHARGE. PT'S DAUGHTER REPORTS THAT IF THE [facility] IS NOT AVAILABLE ON THE WEEKEND, FAMILY MAY BE ABLE TO TRANSPORT PT BACK, DEPENDING ON HIS NEEDS AT THAT TIME. RN TARAN ELLIS CALLED [facility], ; VERONICA VERIFIED PT WAS IN REHAB AND FACILITY WILL ACCEPT BACK AT DISCHARGE. [facility] CAN ACCEPT BACK ON THE WEEKEND IF PT HAS NO NEW MEDICATIONS AND FAMILY CAN TRANSPORT, OTHERWISE THEY WILL NOT BE ABLE TO ACCEPT BACK UNTIL WEEKDAY THEY DO NOT HAVE AVAILABLE PHARMACY FOR NEW WEEKEND MEDS. FOR DISCHARGE, NOTIFY [facility] AT [phone] AND CALL NURSE REPORT TO FACILITY. FAX DISCHARGE INFORMATION TO [phone]. [facility] TO ARRANGE VAN TRANSPORT (NO WEEKEND VAN TRANSPORT IS AVAILABLE). Hog Stomach Preparer: Jesus Mayfield
--- NOTE | 2016-11-09 15:32 | NUR ---
IV RESITED TO LEFT HAND 22G ONE STICK
[2016-11-09 15:45] VITALS: BP 115/61
[2016-11-09 20:30] VITALS: BP 130/70
[2016-11-10] VITALS: BP 119/62
[2016-11-10 05:12] LABS: BASOPHILS 0.1 % (0.0-2.0); EOSINOPHILS 0 % (0-7); HEMATOCRIT 29.5 % (42.0-54.0); HEMOGLOBIN 9.6 g/dL (13.5-17.5); IMMATURE GRANULOCYTES 0.4 % (0-5); LYMPHOCYTES 15.2 % (15-50); MCH 31.7 pg (26.0-34.0); MCHC 32.5 g/dL (31.0-37.0); MCV 97.4 fL (80.0-100.0); MEAN PLATELET VOLUME 9.3 fL (7.4-10.4); MONOCYTES 6.9 % (2-11); NEUTROPHILS 77.4 % (40-80); RBC 3.03 10x6/uL (4.20-6.10); RDW 13.2 % (11.5-14.5)
[2016-11-10 05:14] LABS: PLATELET COUNT 268 10x3/uL (130-400)
[2016-11-10 05:28] LABS: CALCIUM 8.4 mg/dL (8.5-10.1); CARBON DIOXIDE 34.9 mmol/L (21.0-32.0); CREATININE - SERUM 1.2 mg/dL (0.6-1.3); MAGNESIUM - SERUM 2.1 mg/dL (1.8-2.4); POTASSIUM - SERUM 3.9 mmol/L (3.5-5.1)
[2016-11-10 06:29] VITALS: BP 125/51
--- NOTE | 2016-11-10 07:30 | NUR ---
LAYING IN BED RESTING QUIETLY. IV IN PLACE. IS CONFUSED TO HOW BED WORKS. HE THINGS IT HAS BIG TIRES AND HE NEEDS TO LOCK THEM.
[2016-11-10 08:32] VITALS: BP 138/81
--- NOTE | 2016-11-10 12:19 | NUR ---
EATING LUNCH IN ROOM. FAMILY VISITING AND HELPING HIM EAT. HE HAS ORTHO BOOT IN PLACE TO LLE.
[2016-11-10 12:43] VITALS: BP 122/65
[2016-11-10 16:18] VITALS: BP 101/53
--- NOTE | 2016-11-10 17:17 | NUR ---
OFF FLOOR FOR MRI
[2016-11-10 20:15] VITALS: BP 129/62
[2016-11-11 00:34] VITALS: BP 161/67
[2016-11-11 04:26] VITALS: BP 135/75
[2016-11-11 05:12] LABS: BASOPHILS 0.1 % (0.0-2.0); EOSINOPHILS 0 % (0-7); HEMATOCRIT 30.2 % (42.0-54.0); HEMOGLOBIN 9.9 g/dL (13.5-17.5); IMMATURE GRANULOCYTES 1.2 % (0-5); LYMPHOCYTES 19.6 % (15-50); MCH 32.1 pg (26.0-34.0); MCHC 32.8 g/dL (31.0-37.0); MCV 98.1 fL (80.0-100.0); MEAN PLATELET VOLUME 9.4 fL (7.4-10.4); MONOCYTES 6.8 % (2-11); NEUTROPHILS 72.3 % (40-80); PLATELET COUNT 282 10x3/uL (130-400); RBC 3.08 10x6/uL (4.20-6.10); RDW 13.3 % (11.5-14.5)
[2016-11-11 05:26] LABS: ANION GAP 6.6 mmol/L (8-16); CALCIUM 8.2 mg/dL (8.5-10.1); CARBON DIOXIDE 37.2 mmol/L (21.0-32.0); CREATININE - SERUM 1.2 mg/dL (0.6-1.3); MAGNESIUM - SERUM 2.1 mg/dL (1.8-2.4); POTASSIUM - SERUM 3.8 mmol/L (3.5-5.1)
--- NOTE | 2016-11-11 07:35 | NUR ---
CALLED TO ROOM, PATIENT HAS USED THE URINAL AND ALSO INCONT. OF URINE IN BED. LINEN CHANGE DONE. WALLKING BOOT SEEN TO LEFT FOOT, SCD SEEN TO RIGHT. ON 3L PER NC. ON HEART MONITOR SHOWING SR, HR 62. NS INFUSING TO RIGHT HAND AT 100/HR. ON EP, LAB VALUES ARE GOOD. WILL CONTINUE TO MONITOR.
[2016-11-11 08:33] VITALS: BP 134/73
[2016-11-11 12:26] VITALS: BP 127/67
[2016-11-11 15:46] VITALS: BP 141/66
--- NOTE | 2016-11-11 17:35 | NUR ---
SITTING UP IN BED EATING HAMBURGER, FEMALE MEMBER AT BEDISDE. IV VANC. INFUSING TO LEFT HAND WITHOUT PROBLEMS. WILL CONTINUE TOMONITOR.
[2016-11-11 20:00] VITALS: BP 104/62
[2016-11-12 03:49] VITALS: BP 109/63
--- NOTE | 2016-11-12 03:55 | NUR ---
PATIENT IN BED, ASSISTED TO BATHROOM, I.V PATENT, 02 AT 2LPM, BED IN LOW POSITION CALL LIGHT IN REACH. CONTINUE TO MONITOR
[2016-11-12 05:36] LABS: BASOPHILS 0.2 % (0.0-2.0); EOSINOPHILS 0 % (0-7); HEMATOCRIT 32.1 % (42.0-54.0); HEMOGLOBIN 10.4 g/dL (13.5-17.5); MCH 31.7 pg (26.0-34.0); MCHC 32.4 g/dL (31.0-37.0); MCV 97.9 fL (80.0-100.0); MEAN PLATELET VOLUME 9.4 fL (7.4-10.4); MONOCYTES 7.8 % (2-11); PLATELET COUNT 328 10x3/uL (130-400); RBC 3.28 10x6/uL (4.20-6.10); RDW 13.3 % (11.5-14.5); WBC 10.4 10x3/uL (4.8-10.8)
[2016-11-12 05:37] LABS: ANION GAP 6.4 mmol/L (8-16); CALCIUM 8.4 mg/dL (8.5-10.1); CARBON DIOXIDE 36.5 mmol/L (21.0-32.0); CREATININE - SERUM 1.2 mg/dL (0.6-1.3); MAGNESIUM - SERUM 2.3 mg/dL (1.8-2.4); POTASSIUM - SERUM 3.9 mmol/L (3.5-5.1)
--- NOTE | 2016-11-12 07:49 | NUR ---
PT ASSESSMENT COMPLETED NO DISTRESS OBSERVED RESPERATIONS EVEN AND UNLABORED CALL LIGHT IN REACH SRX2 BED LOW AND LOCKED
[2016-11-12 08:25] VITALS: BP 133/77
[2016-11-12] MEDS ORDERED: DOXYCYCLINE HY100 M2 PO (09:41)
--- NOTE | 2016-11-12 09:47 | NUR ---
Patient Name: JOSUE GUZMAN Encounter No: [id number] : 1930 Primary Insurance: MEDICARE A & B Anticipated DC Date: 11-12-2016 Planned Disposition: Nursing Home Facility External Planned Provider: [facility]--TO MEDICARE REHAB BED DCP follow-up note: CM WAS NOTIFIED OF PLAN FOR DC TO SNF TODAY BY DR REILLY. CM PLACED CALL TO [facility] AND SPOKE TO VERONICA TO INFORM OF DC. VERONICA STATED THAT PATIENT WILL RETURN TO REHAB BED AT FACILITY. CM FAXED CLINICAL UPDATE TO VERONICA PER HER REQUEST AND WILL FAX DC INFO WHEN AVAILABLE. [facility] WILL PROVIDE VAN TRANSPORTATION AT NOON TODAY. BEDSIDE NURSE TO CALL REPORT TO SOBIA AT [facility]. CM INFORMED PATIENT AND HIS DAUGHTER WHO WAS AT BEDSIDE. DC IMM SIGNED AND PLACED IN CHART. Mitali Rowell RN CM
--- NOTE | 2016-11-12 10:01 | NUR ---
SPOKE TO PT DAUGHTER REGARDING CARE AND PLAN OF DISCHERGE BACK TO [facility] SPOKE WITH THIS NURSE AND PT TO BE PICKED UP AT 120 THIS AFTERNOON NO DISTRESS OBSERVED AT THIS TIME CALL LIGHT IN REACH SRX2 BED LOW AND LOCKED WILL MONITOR
[2016-11-12] MEDS ORDERED: PREDNISONE10 MG PO (10:14)
--- NOTE | 2016-11-12 10:49 | NUR ---
DC INSTRUCTIONS REVIEWED WITH DAUGHTER AND DAUGHTER VERBALIZED UNDERSTANDING DAUGHTER INFORMED THAT PT WOULD BE PICKED UP AT NOON BY LONG-TERM AND DC INSTRUCTIONS WOULD BE PROVIDED TO LONG-TERM IVP DC'D AND CATH INTACT WILL MONITOR UNTILL PT IS PICKED UP
--- NOTE | 2016-11-12 12:30 | NUR ---
PT DISCHARGED BACK TO [facility] DISCHARGE INSTRUCTIONS REVIEWED AND PT DAUGHTER VERBALIZED UNDERSTANDING
--- NOTE | 2016-11-23 13:49 | CN ---
PATIENT NAME:JOSUE SWEENEY MEDICAL RECORD: [id number] : [birth year] LOCATION:D. D.2104 ADMIT DATE: 11/08/16 ACCOUNT: [id number] CONSULTING PHYSICIAN: LUDMILA CHEEK MD REFERRING PHYSICIAN: COURTNEY REILLY DO DATE OF CONSULTATION: 11/08/2016 Consultation Note CONSULT REQUESTING PHYSICIAN: Benjamin Chin DO. REASON FOR CONSULTATION: Acute exacerbation of chronic obstructive pulmonary disease, bilateral lower lobe pneumonia, pleural effusion, congestive heart failure, and pulmonary edema. HISTORY OF PRESENT ILLNESS: Mr. Sweeney is an 86-year-old gentleman, very well-known to me. He was hospitalized a month ago then he has fractured his left foot and the patient was in rehab in [place]. Yesterday, the patient developed worsening shortness of breath. His lower extremity swelling was getting worse and after, he was running a low-grade fever. He was coughing without much sputum production. Denies any chest pain. REVIEW OF SYSTEMS: Mainly in the history of present illness. PAST MEDICAL HISTORY: 1. COPD. 2. Chronic hypoxic respiratory failure, on home oxygen. 3. Congestive heart failure. 4. Chronic diastolic dysfunction. 5. Coronary artery disease. 6. Chronic kidney disease. 7. Manic depressive disorder. 8. Recent syncopal episode. PAST SURGICAL HISTORY: He had ear surgery. ALLERGIES: ALLERGIC TO BEE STINGS. PRESENT MEDICATIONS: On Lift, is reviewed. PERSONAL AND SOCIAL HISTORY: The patient is living alone. He is an ex-smoker. He is a nondrinker, but he has a good family support. FAMILY HISTORY: Noncontributory. PHYSICAL EXAMINATION: GENERAL: Now, the patient is lying comfortably in bed. He is wearing nasal cannula oxygen. VITAL SIGNS: The blood pressure is 86/46, pulse is 69, respiration is 20, temperature is 99.8, and SpO2 is 94% on 4 liters nasal cannula. He is on 2 liters nasal cannula at home. HEENT: Conjunctivae are pink. Sclerae nonicteric. NECK: Supple. There is elevated JVD. CHEST: There are bilateral crackles and wheeze on forceful expiration. HEART: Rhythm regular, normal sound, no murmur. CONSULT REPORT [id number] JOSUE SWEENEY ABDOMEN: Soft. Bowel sounds are present. No hepatosplenomegaly. RECTAL: Deferred. EXTREMITIES: No cyanosis, no clubbing. There is 2+ pedal edema. SKIN: The skin is warm. Normal turgor. CENTRAL NERVOUS SYSTEM: The patient is awake and alert. There are no obvious cranial nerve abnormalities. The gait was not tested. CHEST RADIOGRAPH: The bilateral lower lobe infiltrated, bilateral pleural effusion. LABORAOTRY DATA: CBC: WBC 7.4, hemoglobin 9.3, hematocrit 29.2, and the platelet count 241. Chemistries: Sodium 139, potassium is 4, chloride 101, bicarbonate is 36.7, BUN is 21, and creatinine 1.5. The proBNP is 1747. IMPRESSION: 1. Zepwg-ke-ibyupaq hypoxic respiratory failure. 2. Acute exacerbation of chronic obstructive pulmonary disease. 3. Bilateral lower lobe pneumonia, most likely hospital-acquired pneumonia with recent hospitalization. 4. Pleural effusion, bilateral, but most likely secondary to congestive heart failure. 5. Congestive heart failure with chronic diastolic dysfunction with elevated BNP about 1700. 6. Coronary artery disease. 7. Chronic kidney disease with a creatinine of 1.5. RECOMMENDATION: 1. Start on Lasix 40 mg IV b.i.d. 2. Follow up labs. 3. Follow up chest radiograph in the morning. Start on Levaquin, vancomycin and cefepime to cover for Gram-negative rods, MRSA, and hospital-acquired pneumonia. 4. Methylprednisolone IV. 5. DVT prophylaxis. Dr. Chin, once again thank you for involving me in the care of Mr. Sweeney. TRANSINT:[id number] Voice Confirmation ID: [id number] DOCUMENT ID: [id number] LUDMILA CHEEK MD at 1349 CC: BENJAMIN CHIN DO [id number] DICTATION DATE: 11/08/16 1539 ELECTRICAL SUBCONTRACTOR: 11/08/162011 DIS IN 11/12/16 [id number] [place] [address]
== END 2016-11-12 12:31 | DRG 189 ==
LOC: D.ER 10:22 → D.M2 14:15
PROVIDERS: Emergency Medicine; Internal Medicine Pulmonary Disease; Nurse Practitioner Family; ADMIT Family Medicine
DX: J96.21 Acute and chronic respiratory failure with hypoxia (principal); J18.9 Pneumonia, unspecified organism; J44.0 Chronic obstructive pulmonary disease with (acute) lower respiratory infection; I50.32 Chronic diastolic (congestive) heart failure; F33.9 Major depressive disorder, recurrent, unspecified; J90 Pleural effusion, not elsewhere classified; J44.1 Chronic obstructive pulmonary disease with (acute) exacerbation; N18.9 Chronic kidney disease, unspecified; D64.9 Anemia, unspecified; I25.10 Atherosclerotic heart disease of native coronary artery without angina pectoris; R41.82 Altered mental status, unspecified; Z87.891 Personal history of nicotine dependence

== ENCOUNTER → 2016-11-20 10:34 | Outpatient (CLI) | payer MEDICARE ==
[2016-11-09 10:53] VITALS: BMI 25.8
[~2016-11-20 10:34] MED LIST changes: +DOXYCYCLINE HY100 M2 PO
== END | disposition home or self-care (01) ==
LOC: D.RT 11-19 10:00 → D.RAD 11-19 11:30 → D.RT 10:34
DX: J44.9 Chronic obstructive pulmonary disease, unspecified (principal)